=== PATIENT | female | born 1995 | race African-American/Black ===

== ENCOUNTER 2018-03-11 12:38 | Emergency (ER) | payer SELFPAY ==
[~2018-03-11] VITALS: Ht 157.5 cm; Wt 56.2 kg
--- NOTE | 2018-03-11 12:38 | NUR ---
PT BIBA ALS TO BED 5
[2018-03-11 12:42] VITALS: BP 113/80
[2018-03-11] MEDS ORDERED: AMMONIA AROMATIC 1 INHL INH ONE (12:51)
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
[2018-03-11 13:03] LABS: BASOPHILS % (AUTO) 0.3 % (0.0-2.0); EOSINOPHILS # (AUTO) 0.1 K/uL (0-0.4); EOSINOPHILS % (AUTO) 0.8 % (0.0-4.0); HEMATOCRIT 36.2 % (36-48); HEMOGLOBIN 11.9 g/dL (12.0-16.0); MEAN CORPUSCULAR HEMOGLOBIN 29 pg (27-31); MEAN CORPUSCULAR HGB CONC 33 g/dL (33-37); MEAN CORPUSCULAR VOLUME 89.7 fL (80-94); MONOCYTES # (AUTO) 0.8 K/uL (0.8-1.0); NEUTROPHILS # (AUTO) 4.9 K/uL (1.8-7.7); NEUTROPHILS % (AUTO) 62.9 % (42.2-75.2); PLATELET COUNT (AUTO) 308 K/uL (140-450); RED BLOOD CELL COUNT(AUTO) 4.04 MIL/uL (4.20-5.40); RED CELL DISTRIBUTION WIDTH 13.7 % (11.6-13.7); WHITE BLOOD COUNT (AUTO) 7.8 K/uL (4.8-10.8)
--- NOTE | 2018-03-11 13:04 | NUR ---
TECH AT BEDSIDE DOING EKG
[2018-03-11 13:19] LABS: CARBON DIOXIDE 27.7 mmol/L (21-32); CHLORIDE 105 mmol/L (98-107); CREATININE 0.8 mg/dL (0.6-1.3); GFR ARICAN-AMERICAN 112 mL/min (>90); GLUCOSE 91 mg/dL (74-106); POTASSIUM 3.7 mmol/L (3.5-5.1); SODIUM SERUM 142 mmol/L (136-145); UREA NITROGEN, BLOOD 6 mg/dL (7-18)
--- NOTE | 2018-03-11 13:26 | NUR ---
PATIENT GIVEN WARM BLANKET.
[2018-03-11 13:37] LABS: ALBUMIN 3.4 g/dL (3.4-5.0); ASPARTATE AMINOTRANSFERASE 20 U/L (15-37); TOTAL BILIRUBIN 0.3 mg/dL (0.0-1.0)
[2018-03-11 13:38] LABS: ACETAMINOPHEN < 0.5 ug/ml (10-30); SALICYLATE < 2.8 mg/dL (2.8-20.0)
--- NOTE | 2018-03-11 13:53 | NUR ---
PATIENT HAD SHORT 2 MINUTE ANXIETY ATTACH WHEN SHE STATED SHE FELT LIKE SHE COULD NOT BREATH. VSS. TALKED TO HER ABOUT HER BREATHING AND SHE WAS ABLE TO CALM DOWN. REPORTED EVENT TO DR PATHAK. Addendum: 03/11/18 at 1355 by TATIANNA ATTACK* NOT ATTACH
[2018-03-11 14:42] LABS: BARBITURATE, URINE NEG. ng/ml (NEG <=200); BENZODIAZEPINE, URINE NEG. ng/mL (NEG <=200); CANNABINOID, URINE NEG. ng/mL (NEG <=50); COCAINE, URINE NEG. ng/mL (NEG <=300); OPIATE, URINE NEG. ng/mL (NEG <=2000); PHENCYCLIDINE SCREEN,URINE NEG. ng/mL (NEG <=25)
[2018-03-11 15:16] VITALS: BP 110/75
--- NOTE | 2018-03-11 15:17 | NUR ---
Patient discharged with v/s stable. Written and verbal after care instructions given and explained. Patient verbalized understanding. Ambulatory with steady gait. All questions addressed prior to discharge. Advised to follow up with PMD.
== END 2018-03-11 15:17 | disposition home or self-care (01) ==
LOC: MED 12:38
DX: R40.4 Transient alteration of awareness (principal); F10.129 Alcohol abuse with intoxication, unspecified
CPT/HCPCS: 36415; 80053; 80305; 81002; 81025; 85025; 93005; 99284; G0480; G0482